=== PATIENT | female | born 1980 | race Caucasian/White ===

== ENCOUNTER 2016-07-28 14:28 | Observation (INO) | payer MEDICAID ==
[~2016-07-28 14:28] MED LIST: ALBUTEROL SULF8.5 GM IH; AUGMENTIN 875-1 EAC2 PO; BACITRACIN1 G1 TOP; BACTRIM DS TAB1 EAC2 PO; FLOVENT HFA12 G IH; FOLIC ACID1 M1 PO; HIBICLENS118 ML TP; KEFLEX500 M4 PO; KLONOPIN1 MG PO; MOTRIN800 MG PO; MOUTHWASH PO; NO HOME MEDICATION XX; NORCO 5-325 TA1 EACH PO; OMEGA 3-6-9 CO400 MG PO; PERCOCET 5/3251 TAB PO; PREDNISONE10 MG PO; PRENATAL VITAM1 EAC5 PO; PRENATAL1 EACH PO; TRAZODONE50 MG PO; TRILEPTAL150 MG PO; TRILEPTAL300 MG PO; ZANAFLEX4 M1 PO; ZITHROMAX250 MG PO; ZOFRAN4 MG PO
[2016-07-28] MEDS ORDERED: VITAMIN D2000 UNIT PO (15:16)
[2016-07-28] MEDS ORDERED: OMEGA 3 FISH O1 EACH PO (15:17)
[2016-07-28 16:34] LABS: URINE BILIRUBIN NEGATIVE (NEG); URINE BLOOD MODERATE (NEG); URINE GLUCOSE (UA) MODERATE (NEG); URINE KETONE MODERATE (NEG); URINE LEUKOCYTE ESTERASE NEGATIVE (NEG); URINE NITRITE NEGATIVE (NEG); URINE PROTEIN NEGATIVE (NEG)
[2016-07-28 16:35] LABS: URINE APPEARANCE HAZY; URINE COLOR YELLOW
[2016-07-28 16:44] LABS: URINE WBC 0-1 /[HPF] (0-5)
[2016-07-28 16:45] LABS: URINE BACTERIA 1+
[2016-07-28 21:55] LABS: URINE APPEARANCE HAZY; URINE BILIRUBIN NEGATIVE (NEG); URINE BLOOD NEGATIVE (NEG); URINE COLOR YELLOW; URINE GLUCOSE (UA) NEGATIVE (NEG); URINE KETONE NEGATIVE (NEG); URINE LEUKOCYTE ESTERASE NEGATIVE (NEG); URINE NITRITE NEGATIVE (NEG); URINE PH 6.5 (5.0-8.0); URINE PROTEIN NEGATIVE (NEG); URINE SPECIFIC GRAVITY 1.005 (1.003-1.030)
[2016-10-22] MEDS ORDERED: PROBIOTIC1 EAC6 PO (18:17)
[2016-10-22] MEDS ORDERED: PROBIOTIC1 EA10 PO (18:17)
[2016-10-25] MEDS ORDERED: NORCO 5-325 TA1 EACH PO (21:49)
[2016-10-25] MEDS ORDERED: IBUPROFEN800 M1 PO (21:50)
== END 2016-07-28 22:59 ==
LOC: LDR 14:28
PROVIDERS: Obstetrics & Gynecology; ADMIT Obstetrics & Gynecology
DX: O99.89 Other specified diseases and conditions complicating pregnancy, childbirth and the puerperium (principal); R19.7 Diarrhea, unspecified; Z3A.23 23 weeks gestation of pregnancy; Z79.899 Other long term (current) drug therapy; Z91.040 Latex allergy status
CPT/HCPCS: J7121